=== PATIENT | female | born 1970 | race Caucasian/White ===

== ENCOUNTER 2023-04-03 07:21 | Day surgery (SDC) | payer OTHER ==
[~2023-04-03] VITALS: Ht 149.9 cm; Wt 101.6 kg
[2023-04-03] MEDS ORDERED: fentaNYL citrate 0.05 MG/ML VIAL ONE (09:28)
[2023-04-03] MEDS ORDERED: MIDAZOLAM 2 MG/2 ML VIAL ONE (09:29)
[2023-04-03] MEDS ORDERED: LIDOCAINE 2% 100 MG/5 ML UJET TP ONE ×2 (09:29→11:30)
[2023-04-03] MEDS ORDERED: MIDAZOLAM 2 MG/2 ML VIAL IVP ONE (11:20)
[2023-04-03] MEDS ORDERED: fentaNYL citrate 0.05 MG/ML VIAL IVP ONE (11:20)
== END 2023-04-03 11:10 | disposition home or self-care (01) ==
LOC: MOR 07:21 → MMU 07:21 → MOR 11:10
PROVIDERS: ATTEND Internal Medicine Gastroenterology
DX: Z12.11 Encounter for screening for malignant neoplasm of colon (principal); K57.30 Diverticulosis of large intestine without perforation or abscess without bleeding; K21.9 Gastro-esophageal reflux disease without esophagitis; K31.89 Other diseases of stomach and duodenum; K75.81 Nonalcoholic steatohepatitis (NASH); K76.6 Portal hypertension; I85.00 Esophageal varices without bleeding; R10.13 Epigastric pain; E66.9 Obesity, unspecified; Z90.49 Acquired absence of other specified parts of digestive tract; Z68.42 Body mass index [BMI] 45.0-49.9, adult
CPT/HCPCS: 43235; 45378; 82948; J2250; J3010